=== PATIENT | male | born 1945 | race Caucasian/White ===

== ENCOUNTER → 2024-01-18 11:13 | Outpatient (REF) | payer MEDICARE, OTHER, SELFPAY | LOC: DHCBS HW 11:13 | PROVIDERS: ATTENDING PHYSICIAN Internal Medicine Cardiovascular Disease; FAMILY PHYSICIAN Family Medicine | DX: I10 Essential (primary) hypertension (principal); R42 Dizziness and giddiness | CPT/HCPCS: 93306 ==

== ENCOUNTER 2025-04-13 15:44 | Emergency (ER) | payer MEDICARE, OTHER, SELFPAY ==
[2025-04-13 16:04] VITALS: BP 178/105
[2025-04-13 16:22] LABS: % Basophils 0.5 % (0-2); % Eosinophils 3.5 % (0-6); % Immature Granulocytes 0.1 % (0-0.5); % Monocytes 8.2 % (1.7-9.3); % Neutrophils 67.7 % (42.2-75.2); Absolute Eosinophils 0.3 10^3/uL (0-0.7); Absolute Lymphocytes 1.6 10^3/uL (1.2-3.4); Absolute Monocytes 0.6 10^3/uL (0.1-0.6); Absolute Neutrophils 5.3 10^3/uL (1.4-6.5); Hematocrit 42.8 % (39.0-52.0); Hemoglobin 15.2 g/dL (13.0-18.0); Mean Corp Hgb Conc. 35.5 g/dL (33.0-37.0); Mean Corpuscular Hgb 31.8 pg (27.0-31.0); Mean Corpuscular Volume 89.5 fL (80.0-94.0); Mean Platelet Volume 9.1 fL (7.4-10.4); Nucleated Red Blood Cells % 0 % (-); Platelet Count 278 10^3/uL (130-400); Red Blood Cell Count 4.78 10^6/uL (4.70-6.10); Red Cell Dist. Width 12.6 % (11.5-14.5); White Blood Cell Count 7.8 10^3/uL (4.8-10.8)
[2025-04-13 16:36] LABS: ALT (SGPT) 24 U/L (0-50); AST (SGOT) 24 U/L (17-59); Albumin 4.8 g/dl (3.5-5.0); Alkaline Phosphatase 49 U/L (38-126); Blood Urea Nitrogen 22 mg/dl (9-20); Calcium 9.6 mg/dl (8.4-10.2); Carbon Dioxide 25 mmol/L (22-30); Chloride 109 mmol/L (98-107); Glucose 106 mg/dl (70-99); Potassium 4.3 mmol/L (3.5-5.1); Sodium 141 mmol/L (135-145); Total Bilirubin 0.9 mg/dl (0.2-1.3); Total Protein 7.5 g/dl (6.3-8.2); eGFR > 60.00
[2025-04-13 16:38] VITALS: BP 180/106
[2025-04-13 16:45] LABS: Troponin I < 0.012 ng/ml
[2025-04-13 18:08] VITALS: BMI 32.9
[2025-04-13 18:10] VITALS: BP 159/101; BP 176/93; BP 179/89; PULSE 66; PULSE 67; PULSE 72
--- NOTE | 2025-04-13 18:17 | ED.GENMED ---
History of Present Illness
General
Chief Complaint: Fainting Sensation
Source: patient
Exam Limitations: none
Time Seen by Provider: 04/13/25 17:48
Nursing documentation reviewed up to this point in time: agreed with
History of Present Illness
History of Present Illness:
Patient to ED with complaint of lightheadedness and elevated BP readings. States he can feel in his head his BP elevate. States he is getting systolic readings over 200. Unsure of diastolic readings. Denes headache, vision changes. Denies any
CP/pressure, SOB.. Brought to ED by family for eval. States he had a similar episode in 2022. Found to have sinusitis. Symptoms resolved after course of antibiotic. He denies any sinus symptoms presently.
Past History
Past History
ED Past Medical History: CAD, Cancer (colon cancer 2015), HTN, Hypercholesterolemia, CT and Other (Diverticulosis)
ED Past Surgical History: Bowel resection (Hemicolectomy) and Other
Social History
Tobacco: Former smoker
Alcohol: Other
Drug: None
Personal:
Living: with family
Employment: Retired
Family History
Family History: Other (Reviewed and noncontributory)
Review of Systems
Review of Systems
Allergies reviewed?: Yes
All Other Systems: ROS reviewed and negative except as documented in HPI and ROS
Constitutional: Reports no symptoms
EENT: Reports no symptoms
Respiratory: Reports no symptoms
Cardiac: Reports other (Elevated BP readings.)
ABD/GI: Reports no symptoms
: Reports no symptoms
Musculoskeletal: Reports no symptoms
Skin: Reports no symptoms
Neurological: Reports dizzy (Lighheaded)
Psychiatric: Reports no symptoms
Phy Exam
General Physical Exam
General Presentation: well appearing and no apparent distress
General age: appears stated age
General Skin: warm and dry
General Habitus: normal
Cardiovascular Exam
Cardiovascular Exam: regular rate/rhythm and no edema
Pulmonary Exam
Pulmonary Exam: lungs clear and no respiratory distress
Neurological Exam
Neurological Exam: alert, oriented x3, CN II-XII intact, no motor deficits, no sensory deficits, speech normal and normal gait
Musculoskeletal Exam
Musculoskeletal Exam: full ROM and neuro vasc intact
Skin Exam
Skin Exam: normal color, warm/dry and no rash
Psychiatric Exam
Psychiatric Exam: normal mood/affect
Course
Orders/Labs/Results
Orders:
Orders
04/13/25 15:48
EKG [Electrocardiogram (*1)] Urgent
Reason for Study: Syncope
04/13/25 15:49
EKG- Treatment ONCE
04/13/25 16:11
Complete Blood Count/With Diff Urgent
Comprehensive Metabolic Panel Urgent
Troponin I Urgent
04/13/25 17:48
Orthostatic VS- Treatment ONCE
04/13/25 18:12
CT Head W/o Iv Contrast Urgent
Comment:
Reason For Exam: near syncope
CT Sinuses W/o Iv Contrast Urgent
Comment:
Reason For Exam: dizziness
04/13/25 18:17
Cardiac Monitoring- Treatment ONCE
04/13/25 19:21
Amoxicillin 875 mg/Clav 125 mg [Augmentin 875 mg/125 mg] 1 tablet PO NOW STA
Abnormal Lab Results
04/13/25
16:11
MCH 31.8 H pg
(27.0-31.0)
Lymphocytes % 20.0 L %
(20.5-51.1)
Chloride 109 H mmol/L
(98-107)
BUN 22 H mg/dl
(9-20)
Glucose 106 H mg/dl
(70-99)
04/13/25 16:11
04/13/25 16:11
Vital Signs
Initial and Last Documented VS:
Initial Vital Signs
Temp Pulse Resp BP Pulse Ox
98.8 F 70 16 178/105 97
04/13/25 16:04 04/13/25 16:04 04/13/25 16:04 04/13/25 16:04 04/13/25 16:04
Last Documented Vital Signs
Temp Pulse Resp BP Pulse Ox
98.8 F 63 17 145/78 98
04/13/25 16:04 04/13/25 19:45 04/13/25 19:45 04/13/25 19:00 04/13/25 19:45
*Critical Care Note
Total Time (30-74mins, 75-104mins- exclusive of procedures): Not Applicable
Update Note
Update Note:
Patient to ED with complaint of feeling lightheaded intermittently and feeling like his blood pressure is elevating. Initial BP reading 180's/90's however is now 146/82. No cp/prssure. No headache. Neg tilt. Labs reviewed, no concerning findings.
CT of head- no acute findings. SInus CT confirms right maxillary sinusitis. He had a similar complaint of lightheadedness and elevated BP readings in past, diagnosed with sinusitis. Symptoms resolved with course of augmentin. Placed on Augmentin
in ED. He will be discharged home, close follow up with PCP. He agrees to keep a BP diary. Given instructions on s/s to return to ED and he is agreeable to plan.
ED Attending Note
-
Portions of this chart may have been created with voice recognition software.� Occasional wrong word or��sound alike� substitutions may have occurred due to the inherent limitations of voice recognition software.
Discharge Plan
Departure
Patient Disposition: Home (Routine Discharge)
Date of Disposition: 04/13/25
Time of Disposition: 19:25
Patient with high blood pressure during this ER visit?: No
Condition: Good
Covid-19: Not Applicable
Discharge Problem:
Dizziness, Sinusitis
Instructions: High blood pressure in adults, Sinusitis in adults - ED discharge instructions
Prescriptions:
New
amoxicillin-pot clavulanate 875-125 mg tablet
1 tab PO BID Qty: 20 0RF
No Action
simvastatin 10 MG tablet
20 mg PO QPM
aspirin 81 MG tablet,delayed release (DR/EC)
81 mg PO QPM
metoprolol succinate [Toprol XL] 25 mg tablet extended release 24 hr
25 mg PO DAILY Qty: 30 2RF
valsartan 160 mg Tablet
160 mg PO DAILY
amoxicillin-pot clavulanate 875-125 mg Tablet
1 tab PO Q12 3 Days Qty: 6 0RF
cyanocobalamin (vitamin B-12) 1,000 mcg Tablet
1,000 mcg PO DAILY Qty: 30 0RF
Referrals:
Tala Mackay MD [Family Provider] - Follow up in 2-3 days
Activity Restrictions/Additional Instructions:
Return to the emergency department immediately for any changes in/worsening of your symptoms
Interventions
Interventions:
*Risk Screen - Suicide Last Done: 04/13/25 18:06
*General Assessment Last Done: 04/13/25 18:06
*Neglect/Abuse Screening Last Done: 04/13/25 18:06
*ED- Fall Risk Assessment Last Done: 04/13/25 18:06
*ED COVID-19 Vaccine History Last Done: 04/13/25 18:06
*Nursing Disposition Last Done: 04/13/25 20:12
ED- Cardiac Assessment Last Done: 04/13/25 18:21
ED- Neurological Assessment Last Done: 04/13/25 18:21
Discharge Date and Time
Discharge Date/Time: 04/13/25 20:12
Print Language: LITHUANIAN
[2025-04-13 19:00] VITALS: BP 145/78
--- NOTE | 2025-04-13 19:00 | EDRN ---
Report received, introduced myself to patient and family and hooked him back up to monitor, no further needs at this time.
[2025-04-13] MEDS: AUGMENTIN 875 MG/125 MG 1 TABLET PO (19:50)
== END 2025-04-13 20:12 | disposition home or self-care (01) ==
LOC: EMR 15:44
PROVIDERS: Emergency Medicine; EMERGENCY PHYSICIAN Emergency Medicine; FAMILY PHYSICIAN Family Medicine
DX: R42 Dizziness and giddiness (principal); J32.9 Chronic sinusitis, unspecified; E78.00 Pure hypercholesterolemia, unspecified; I25.10 Atherosclerotic heart disease of native coronary artery without angina pectoris; I10 Essential (primary) hypertension; Z85.038 Personal history of other malignant neoplasm of large intestine; Z87.891 Personal history of nicotine dependence; Z90.49 Acquired absence of other specified parts of digestive tract
CPT/HCPCS: 99284; 70450; 70486; 80053; 84484; 85025; 93005